=== PATIENT | female | born 1955 ===

== ENCOUNTER 2019-03-13 08:18 | Day surgery (SDC) | payer BC ==
[~2019-03-13 08:18] MED LIST: Dexamethasone IV* 4 MG/ML 1 ML (4 MG) IV SLOW PU ONE; Dexamethasone IV* 4 MG/ML 1 ML (4 MG) ONE; Famotidine IV* 10 MG/ML 2 ML (20 mg) IV ONE; Famotidine IV* 10 MG/ML 2 ML (20 mg) ONE; Lactated Ringers 1000 ML Bag* 1,000 ML IV SCH; ceFAZolin 2 GM PREMIX in ORs 0 GM/0 ML BAG ONE
[2019-03-13] MEDS ORDERED: fentaNYL* 50 MCG/ML 2 ML VIAL (100 MCG VIAL) ONE (08:45)
[2019-03-13] MEDS ORDERED: Propofol* 10 MG/ML 20 ML BTL ONE (08:45)
[2019-03-13] MEDS ORDERED: Lidocaine 2% PF * 5 ML VIAL ONE (08:45)
[2019-03-13] MEDS ORDERED: Betamethasone INJ* 6 MG/ML 5 ML VIAL (30 MG) ONE (09:44)
[2019-03-13] MEDS ORDERED: Lidocaine 1% INJ* 10 MG/ML 30 ML SDV ONE (09:44)
[2019-03-13] MEDS ORDERED: Bupivacaine 0.25% SDV* 30 ML ONE (09:44)
[2019-03-13 11:05] VITALS: BP 177/68
[2019-03-13] MEDS ORDERED: Buffered Lidocaine 1% SYRIN* 1 ML/SYRINGE INTRADERM ONE (11:41)
--- NOTE | 2019-03-13 20:53 | OP ---
DATE OF OPERATION: 03/13/19 [facility] DATE OF : 51 SURGEON: Rolly Rogers MD RESEARCH CHEMICAL ENGINEER: TORI Burnette ANESTHESIOLOGIST: Dr. Roldan. ANESTHESIA: Local MAC. PRE-OP DIAGNOSES: 1. Left trigger thumb. 2. Left middle trigger finger. 3. Right middle trigger finger. POST-OP DIAGNOSES: 1. Left trigger thumb. 2. Left middle trigger finger. 3. Right middle trigger finger. OPERATIVE PROCEDURE: 1. Left trigger thumb release. 2. Left middle trigger finger release. 3. Right middle trigger finger corticosteroid injection. INDICATIONS: Ms. Guido has the aforementioned conditions. We talked about treatment options, risks, and benefits; she wanted to proceed. ESTIMATED BLOOD LOSS: 2 mL. COMPLICATIONS: None. FINDINGS: See above and below. DESCRIPTION OF PROCEDURE: Ms. Guido was seen in the preoperative holding area. The correct site, side, and procedures were identified. We came back to the operating room. The arm was prepped and draped in the usual fashion and a time-out was performed. Prior to draping I had taken a 25 gauge needled and injected the right middle finger tendon sheath at the A1 london with 0.5 mL of 1% lidocaine and 9 mg of betamethasone. A Band-Aid was applied there. On the left arm after the draping was complete, I made a 1 cm longitudinal incision over the middle finger A1 london. Dissection was carried down. Full thickness flaps were raised off the tendon sheath. The tendon sheath was incised longitudinally. Once I had released the entirety of the A1 london and the facia proximal and just the leading edge of the A2 london, I irrigated out the wound and skin was closed with 4-0 nylon suture. I then made a 1 cm transverse incision in the MP joint flexion crease. Full- thickness flaps were raised off the tendon sheath. Ragnell retractors were placed. The A1 london was released. Once I had released that, the wound was irrigated out and the skin was closed with 4-0 nylon suture. Wounds were dressed with Xeroform, 4x4's, sterile Webril, and an Fernando bandage. She was taken to the recovery room in stable condition. [id number]/[facility] #: [id number] [facility]
== END 2019-03-13 11:26 | disposition home or self-care (01) ==
LOC: OREAST 08:18
PROVIDERS: ATTEND Orthopaedic Surgery Hand Surgery
DX: M65.312 Trigger thumb, left thumb (principal); M65.332 Trigger finger, left middle finger; M65.331 Trigger finger, right middle finger; M19.90 Unspecified osteoarthritis, unspecified site; Z87.891 Personal history of nicotine dependence; F41.9 Anxiety disorder, unspecified
CPT/HCPCS: J0690; J0702; J1100; J2704; J3010; J3490